=== PATIENT | female | born 1955 | race Two or more races ===

== ENCOUNTER 2017-03-03 10:13 | Inpatient (IN) | payer OTHER ==
[~2017-03-03] VITALS: Ht 172.7 cm; Wt 75.5 kg
[2017-03-03] MEDS ORDERED: SODIUM CHLORIDE 0.9% 1,000 ML IV ONE ×2 (10:35→13:15)
[2017-03-03 11:25] LABS: Basophils # (auto) 0 uL; Basophils % (auto) 0.6 % (0.0-2.0); CONDITION Y; DEFINITIVE SEE PRINTOUT; Eosinophils # (auto) 0.2 uL; Eosinophils % (auto) 3.3 % (0.0-7.0); Hemoglobin 10.4 g/dL (12.2-16.2); Lymphocytes # (auto) 1.8 uL; Lymphocytes % (auto) 29.1 % (10.0-50.0); Mean Corpuscular Hemoglobin 25.9 pg (28.0-32.0); Mean Corpuscular Hgb Conc. 34.4 g/dL (32.0-36.0); Mean Corpuscular Volume 75.3 fL (80.0-100.0); Mean Platelet Volume 9.1 fL (7.4-10.4); Monocytes # (auto) 0.5 uL; Monocytes % (auto) 8.2 % (0.0-12.0); Neutrophils # (auto) 3.5 uL; Neutrophils % (auto) 58.8 % (37.0-80.0); Platelet Count (auto) 221 10^3/uL (140-450); Red Cell Distribution Width 19.1 % (11.6-16.0)
[2017-03-03 11:36] LABS: INR 1.03 (0.9-1.15); Partial Thromboplastin Time 25.7 sec (22.64-33.71); Prothrombin Time 11.2 sec (9.37-12.3)
[2017-03-03 11:50] LABS: Alkaline Phosphatase 45 U/L (45-117); Anion Gap 11 (5-15); Aspartate Aminotransferase 22 U/L (15-37); BUN/Creatinine Ratio 17.1; Bilirubin, Total 0.2 mg/dL (0.2-1.0); Blood Urea Nitrogen 22 mg/dL (7-18); Calcium 7.5 mg/dL (8.5-10.1); Carbon Dioxide 20 mmol/L (21-32); Chloride 96 mmol/L (98-107); GFR African American 54 mL/min; GFR Non-African American 45 mL/min; Glucose 67 mg/dL (74-106); Magnesium 1.9 mg/dL (1.6-2.6); Sodium 127 mmol/L (136-145); Total Protein 6.3 g/dL (6.4-8.2)
[2017-03-03 11:54] LABS: Potassium 2.4 mmol/L (3.5-5.1)
[2017-03-03] MEDS ORDERED: POTASSIUM CHL 20MEQ/100ML 100 ML IV ONE (12:00)
[2017-03-03 12:09] LABS: Anisocytosis Slight; Hypochromia Slight; Platelet Estimate Adequate
[2017-03-03 12:10] LABS: Ovalocytes FEW
[2017-03-03] MEDS ORDERED: NITROGLYCERIN 0.4 MG SL TAB SL PRN (13:15)
[2017-03-03] MEDS ORDERED: SOD CHL 0.9%/ KCL 40MEQ 1,000 ML IV ONE (13:15)
[2017-03-03] MEDS ORDERED: LORazepam 0.5 MG TAB PO PRN (13:15)
[2017-03-03] MEDS ORDERED: POTASSIUM CHL 20 Meq TABLET PO ONE (13:15)
[2017-03-03] MEDS ORDERED: MORPHINE SULF INJ 2 MG/ML SYRINGE 1ML IV PRN (13:15)
[2017-03-03] MEDS ORDERED: TEMAZEPAM 15 MG CAP PO PRN (13:15)
[2017-03-03] MEDS ORDERED: MORPHINE SULFATE 4 MG/ML SYRG IV PRN (13:15)
[2017-03-03] MEDS ORDERED: ACETAMINOPHEN 500 MG TAB PO PRN (13:15)
[2017-03-03] MEDS: POTASSIUM CHL 20MEQ/100ML 100 ML IV SCH ×4 (13:15→22:27)
[2017-03-03] MEDS ORDERED: LACTULOSE 20Gm/30ML SOLN PO PRN (13:15)
[2017-03-03] MEDS ORDERED: PROMETHAZINE HCL 25 MG/ML 1ML IV PRN (13:15)
[2017-03-03] MEDS ORDERED: DEXTROSE (50%) 50ML SYRG IV PRN (13:15)
[2017-03-03] MEDS ORDERED: ASPirin 81 mg TAB PO ONE (13:45)
[2017-03-03 13:58] LABS: Cholesterol 150 mg/dL (< 200); HDL Cholesterol 42 mg/dL (40-59); LDL Cholesterol 103 mg/dL (< 100); Temperature: 22.7 C (20.0-25.0); Triglycerides 61 mg/dL (< 150)
[2017-03-03] MEDS: ENOXAPARIN SOD 40 MG/0.4 ML SYRINGE SC SCH (14:00)
[2017-03-03] MEDS ORDERED: METO-159 PO (15:42)
[2017-03-03] MEDS ORDERED: OMEP20CA74 PO (15:42)
[2017-03-03] MEDS ORDERED: PREG75CA PO (15:42)
[2017-03-03] MEDS ORDERED: TOPI50TA53 PO (15:42)
[2017-03-03] MEDS ORDERED: METF-370 PO (15:42)
[2017-03-03] MEDS ORDERED: NORT25CA PO (15:42)
[2017-03-03] MEDS ORDERED: GABA-497 PO (15:42)
[2017-03-03] MEDS: InsuLIN REG 1unit/0.01ml Soln (100units/ml) SC SCH ×2 (17:00→21:31)
[2017-03-03] MEDS: ACCU-CHEK COMFORT CURVE STRIP VI SCH ×2 (17:18→21:31)
[2017-03-03] MEDS ORDERED: POTASSIUM CHL 20MEQ/100ML 100 ML IV SCH (19:15)
[2017-03-03 20:00] VITALS: BP 138/80
[2017-03-03] MEDS: ATORVASTATIN 20 MG TAB PO SCH (21:31)
[2017-03-03] MEDS: HYDROcodone-ACET 5/325MG TAB PO PRN (21:34)
[2017-03-03 21:45] VITALS: BP 138/80
[2017-03-03] MEDS ORDERED: LORazepam 2MG/ML-1ML VIAL IV PRN (21:45)
[2017-03-04] MEDS: POTASSIUM CHL 20MEQ/100ML 100 ML IV SCH (01:53)
[2017-03-04] MEDS: HYDROcodone-ACET 5/325MG TAB PO PRN ×4 (03:35→21:32)
[2017-03-04 04:37] VITALS: BP 120/79
[2017-03-04] MEDS: InsuLIN REG 1unit/0.01ml Soln (100units/ml) SC SCH ×4 (06:05→21:25)
[2017-03-04] MEDS: ACCU-CHEK COMFORT CURVE STRIP VI SCH ×4 (06:06→21:25)
[2017-03-04 06:28] LABS: Albumin 3.3 g/dL (3.4-5.0); Bilirubin, Total 0.4 mg/dL (0.2-1.0); Calcium 9.1 mg/dL (8.5-10.1); Potassium 3.3 mmol/L (3.5-5.1)
[2017-03-04 06:36] LABS: Basophils # (auto) 0 uL; Basophils % (auto) 0.4 % (0.0-2.0); CONDITION Y; DEFINITIVE SEE PRINTOUT; Eosinophils # (auto) 0.2 uL; Eosinophils % (auto) 4.7 % (0.0-7.0); Hematocrit 30.5 % (36.0-46.0); Hemoglobin 10.3 g/dL (12.2-16.2); Lymphocytes # (auto) 2.1 uL; Lymphocytes % (auto) 46.4 % (10.0-50.0); Mean Corpuscular Hemoglobin 25.9 pg (28.0-32.0); Mean Corpuscular Hgb Conc. 33.6 g/dL (32.0-36.0); Mean Corpuscular Volume 77.1 fL (80.0-100.0); Mean Platelet Volume 9.5 fL (7.4-10.4); Monocytes # (auto) 0.3 uL; Monocytes % (auto) 7.1 % (0.0-12.0); Neutrophils # (auto) 1.9 uL; Neutrophils % (auto) 41.4 % (37.0-80.0); Platelet Count (auto) 222 10^3/uL (140-450); Red Cell Distribution Width 19.5 % (11.6-16.0); White Blood Cell 4.5 10^3/uL (4.4-10.8)
[2017-03-04 07:21] LABS: Anisocytosis Slight; Hypochromia Slight; Microcytosis Slight; Platelet Estimate Adequate
[2017-03-04 08:52] VITALS: BP 117/75
[2017-03-04] MEDS: PANTOPRAZOLE 40 MG TAB PO SCH (10:41)
[2017-03-04] MEDS: ASPirin 81 mg TAB PO SCH (10:41)
[2017-03-04] MEDS: SODIUM CHLORIDE 0.9% 1,000 ML IV SCH ×2 (12:30→21:21)
[2017-03-04] MEDS ORDERED: POTASSIUM CHL 20 Meq TABLET PO ONE (12:45)
[2017-03-04 13:15] VITALS: BP 127/74
[2017-03-04] MEDS: ENOXAPARIN SOD 40 MG/0.4 ML SYRINGE SC SCH (13:57)
[2017-03-04 16:41] VITALS: BP 126/91
[2017-03-04 20:00] VITALS: BP 113/69
[2017-03-04] MEDS: ATORVASTATIN 20 MG TAB PO SCH (21:22)
[2017-03-04 21:37] VITALS: BP 113/69
[2017-03-05] MEDS: SODIUM CHLORIDE 0.9% 1,000 ML IV SCH ×3 (04:01→22:27)
[2017-03-05] MEDS: HYDROcodone-ACET 5/325MG TAB PO PRN (04:02)
[2017-03-05 05:07] VITALS: BP 132/97
[2017-03-05 05:41] LABS: Basophils # (auto) 0 uL; Basophils % (auto) 0.3 % (0.0-2.0); CONDITION Y; DEFINITIVE SEE PRINTOUT; Eosinophils # (auto) 0.1 uL; Eosinophils % (auto) 3.6 % (0.0-7.0); Hematocrit 31.7 % (36.0-46.0); Hemoglobin 10.6 g/dL (12.2-16.2); Lymphocytes # (auto) 1.6 uL; Lymphocytes % (auto) 39.5 % (10.0-50.0); Mean Corpuscular Hemoglobin 25.9 pg (28.0-32.0); Mean Corpuscular Hgb Conc. 33.5 g/dL (32.0-36.0); Mean Corpuscular Volume 77.4 fL (80.0-100.0); Mean Platelet Volume 8.5 fL (7.4-10.4); Monocytes # (auto) 0.3 uL; Monocytes % (auto) 7.7 % (0.0-12.0); Neutrophils % (auto) 48.9 % (37.0-80.0); Platelet Count (auto) 272 10^3/uL (140-450); Red Cell Distribution Width 19.7 % (11.6-16.0); White Blood Cell 4.1 10^3/uL (4.4-10.8)
[2017-03-05 05:57] LABS: Calcium 8.9 mg/dL (8.5-10.1); Magnesium 1.8 mg/dL (1.6-2.6); Potassium 3.5 mmol/L (3.5-5.1)
[2017-03-05] MEDS: ACCU-CHEK COMFORT CURVE STRIP VI SCH ×4 (06:30→22:28)
[2017-03-05] MEDS: InsuLIN REG 1unit/0.01ml Soln (100units/ml) SC SCH ×4 (06:30→22:00)
[2017-03-05 09:00] VITALS: BP 151/91
[2017-03-05] MEDS: ASPirin 81 mg TAB PO SCH (10:49)
[2017-03-05] MEDS: PANTOPRAZOLE 40 MG TAB PO SCH (10:49)
[2017-03-05 13:00] VITALS: BP 166/87
[2017-03-05] MEDS: ENOXAPARIN SOD 40 MG/0.4 ML SYRINGE SC SCH (15:49)
[2017-03-05 17:00] VITALS: BP 162/102
[2017-03-05] MEDS: cloNIDine HCL 0.1 MG TAB PO PRN (18:03)
[2017-03-05 22:00] VITALS: BP 160/98
[2017-03-05] MEDS: ATORVASTATIN 20 MG TAB PO SCH (22:27)
[2017-03-05] MEDS: PREGABALIN 25 MG CAP PO SCH (22:27)
[2017-03-05] MEDS: GABAPENTIN 300 MG CAP PO SCH (22:27)
[2017-03-05] MEDS: MORPHINE SULF 15mg ER tab PO SCH (22:28)
[2017-03-06] MEDS ORDERED: LORazepam 2MG/ML-1ML VIAL IV PRN (02:15)
[2017-03-06 02:57] LABS: Basophils # (auto) 0 uL; Basophils % (auto) 0.4 % (0.0-2.0); CONDITION Y; DEFINITIVE SEE PRINTOUT; Eosinophils # (auto) 0.1 uL; Eosinophils % (auto) 0.8 % (0.0-7.0); Hematocrit 34.7 % (36.0-46.0); Hemoglobin 11.6 g/dL (12.2-16.2); Lymphocytes # (auto) 1.9 uL; Mean Corpuscular Hemoglobin 26.1 pg (28.0-32.0); Mean Corpuscular Hgb Conc. 33.4 g/dL (32.0-36.0); Mean Corpuscular Volume 78.2 fL (80.0-100.0); Mean Platelet Volume 8.2 fL (7.4-10.4); Monocytes # (auto) 0.4 uL; Monocytes % (auto) 6.5 % (0.0-12.0); Neutrophils # (auto) 4.3 uL; Neutrophils % (auto) 64.3 % (37.0-80.0); Platelet Count (auto) 296 10^3/uL (140-450); White Blood Cell 6.7 10^3/uL (4.4-10.8)
[2017-03-06 03:09] LABS: Red Cell Distribution Width 20.4 % (11.6-16.0)
[2017-03-06 03:23] LABS: Albumin 3.5 g/dL (3.4-5.0); BUN/Creatinine Ratio 6.8; Calcium 8.7 mg/dL (8.5-10.1)
[2017-03-06 03:26] LABS: Bilirubin, Total 0.5 mg/dL (0.2-1.0); Total Protein 7.6 g/dL (6.4-8.2)
[2017-03-06] MEDS: SODIUM CHLORIDE 0.9% 1,000 ML IV SCH ×2 (04:30→12:30)
[2017-03-06 05:00] VITALS: BP 165/95
[2017-03-06 06:00] VITALS: BP 157/100
[2017-03-06] MEDS: GABAPENTIN 300 MG CAP PO SCH ×3 (06:00→22:12)
[2017-03-06] MEDS: PREGABALIN 25 MG CAP PO SCH ×3 (06:00→22:13)
[2017-03-06] MEDS: ACCU-CHEK COMFORT CURVE STRIP VI SCH ×4 (06:16→22:13)
[2017-03-06] MEDS: InsuLIN REG 1unit/0.01ml Soln (100units/ml) SC SCH ×4 (06:16→22:00)
[2017-03-06 08:55] VITALS: BP 148/90
[2017-03-06] MEDS: PANTOPRAZOLE 40 MG TAB PO SCH (09:45)
[2017-03-06] MEDS: MORPHINE SULF 15mg ER tab PO SCH ×2 (09:45→22:12)
[2017-03-06] MEDS: ASPirin 81 mg TAB PO SCH (09:45)
[2017-03-06] MEDS ORDERED: POTASSIUM CHL 20 Meq TABLET PO ONE (11:15)
[2017-03-06 11:59] VITALS: BP 144/89
[2017-03-06] MEDS: ENOXAPARIN SOD 40 MG/0.4 ML SYRINGE SC SCH (13:44)
[2017-03-06] MEDS: chlordiazePOXIDE HCL 5 MG CAP PO SCH ×2 (13:45→22:12)
[2017-03-06 17:00] VITALS: BP 165/97
[2017-03-06] MEDS: cloNIDine HCL 0.1 MG TAB PO PRN (17:26)
[2017-03-06 22:00] VITALS: BP 153/101
[2017-03-06] MEDS: ATORVASTATIN 20 MG TAB PO SCH (22:13)
[2017-03-06] MEDS: TOPIRAMATE 25 MG TAB PO SCH (22:13)
[2017-03-07] MEDS ORDERED: AMLO5TAB2 PO (04:59)
[2017-03-07] MEDS ORDERED: LEVO25TA6 PO (04:59)
[2017-03-07] MEDS ORDERED: HCTZ25T PO (04:59)
[2017-03-07] MEDS ORDERED: BACL20TA PO (04:59)
[2017-03-07 05:00] VITALS: BP 153/94
[2017-03-07] MEDS: SODIUM CHLORIDE 0.9% 1,000 ML IV SCH ×2 (05:01→15:10)
[2017-03-07] MEDS: GABAPENTIN 300 MG CAP PO SCH ×2 (05:48→15:57)
[2017-03-07] MEDS: PREGABALIN 25 MG CAP PO SCH ×2 (05:48→15:58)
[2017-03-07] MEDS: chlordiazePOXIDE HCL 5 MG CAP PO SCH ×2 (05:48→15:57)
[2017-03-07] MEDS: InsuLIN REG 1unit/0.01ml Soln (100units/ml) SC SCH ×3 (05:56→17:00)
[2017-03-07] MEDS: ACCU-CHEK COMFORT CURVE STRIP VI SCH ×3 (05:56→17:00)
[2017-03-07 06:47] LABS: Basophils # (auto) 0 uL; Basophils % (auto) 0.4 % (0.0-2.0); CONDITION Y; DEFINITIVE SEE PRINTOUT; Eosinophils # (auto) 0.5 uL; Eosinophils % (auto) 7.1 % (0.0-7.0); Hematocrit 31.3 % (36.0-46.0); Hemoglobin 10.7 g/dL (12.2-16.2); Lymphocytes # (auto) 2.7 uL; Mean Corpuscular Hemoglobin 26.2 pg (28.0-32.0); Mean Corpuscular Volume 76.9 fL (80.0-100.0); Mean Platelet Volume 8.1 fL (7.4-10.4); Monocytes # (auto) 0.4 uL; Monocytes % (auto) 6.1 % (0.0-12.0); Neutrophils # (auto) 3.5 uL; Neutrophils % (auto) 48.4 % (37.0-80.0); Platelet Count (auto) 255 10^3/uL (140-450); White Blood Cell 7.1 10^3/uL (4.4-10.8)
[2017-03-07] MEDS: cloNIDine HCL 0.1 MG TAB PO PRN ×2 (06:52→18:52)
[2017-03-07 07:01] LABS: Calcium 9.1 mg/dL (8.5-10.1); Magnesium 1.8 mg/dL (1.6-2.6); Potassium 3.3 mmol/L (3.5-5.1)
[2017-03-07 07:29] VITALS: BP 160/104
[2017-03-07 07:32] LABS: Red Cell Distribution Width 20.6 % (11.6-16.0)
[2017-03-07 08:42] LABS: Anisocytosis Slight; Hypochromia Slight; Platelet Estimate Adequate
[2017-03-07] MEDS: ASPirin 81 mg TAB PO SCH (10:49)
[2017-03-07] MEDS: PANTOPRAZOLE 40 MG TAB PO SCH (10:50)
[2017-03-07] MEDS: TOPIRAMATE 25 MG TAB PO SCH (10:51)
[2017-03-07] MEDS: MORPHINE SULF 15mg ER tab PO SCH (10:51)
[2017-03-07] MEDS ORDERED: POTASSIUM CHL 20 Meq TABLET PO ONE (11:15)
[2017-03-07 13:38] VITALS: BP 144/88
[2017-03-07] MEDS: ENOXAPARIN SOD 40 MG/0.4 ML SYRINGE SC SCH (15:58)
[2017-03-07 17:00] VITALS: BP 167/100
== END 2017-03-07 23:02 | DRG 896 ==
LOC: ER 10:13 → TELE 10:14 → TELE-E-ADS 15:10 → TELE-CENTR 17:51
PROVIDERS: ADMIT Internal Medicine; ATTEND Internal Medicine Geriatric Medicine
DX: F11.23 Opioid dependence with withdrawal (principal); G93.41 Metabolic encephalopathy; E87.1 Hypo-osmolality and hyponatremia; D64.9 Anemia, unspecified; E11.9 Type 2 diabetes mellitus without complications; I10 Essential (primary) hypertension; I67.2 Cerebral atherosclerosis; J44.9 Chronic obstructive pulmonary disease, unspecified; E03.9 Hypothyroidism, unspecified; E87.6 Hypokalemia; K21.9 Gastro-esophageal reflux disease without esophagitis; E86.0 Dehydration; F41.9 Anxiety disorder, unspecified; G89.4 Chronic pain syndrome; Z82.49 Family history of ischemic heart disease and other diseases of the circulatory system; Z82.3 Family history of stroke; Z79.899 Other long term (current) drug therapy; Z81.8 Family history of other mental and behavioral disorders; Z86.73 Personal history of transient ischemic attack (TIA), and cerebral infarction without residual deficits; M54.9 Dorsalgia, unspecified; Z90.710 Acquired absence of both cervix and uterus; Z79.82 Long term (current) use of aspirin
CPT/HCPCS: 36415; 70450; 70551; 71010; 74176; 80048; 80053; 80061; 80320; 82550; 82607; 82746; 82962; 83036; 83605; 83735; 84443; 84484; 85025; 85610; 85652; 85730; 87040; 93005; 93306; 93886; 95819; 96374; 99291; J3480

== ENCOUNTER → 2017-09-02 | Outpatient (CLI) | payer MEDICARE, MEDICAID ==
[~2017-09-02] MED LIST: AMLO5TAB2 PO; BACL20TA PO; GABA300C10 PO; HCTZ25T PO; LEVO25TA6 PO; METF-370 PO; METO-159 PO; NORT25CA PO; OMEP20CA74 PO; PREG75CA PO; TOPI50TA53 PO
[2017-09-02 10:18] LABS: Basophils # (auto) 0 uL; Eosinophils # (auto) 0.6 uL; Eosinophils % (auto) 10.1 % (0.0-7.0); Lymphocytes # (auto) 2.6 uL; Monocytes # (auto) 0.4 uL; Neutrophils # (auto) 2.1 uL; Nucleated Red Blood Cells % 0.1 %; White Blood Cell 5.7 10^3/uL (4.4-10.8)
[2017-09-02 10:20] LABS: Basophils % (auto) 0.8 % (0.0-2.0); Hematocrit 33.7 % (36.0-46.0); Hemoglobin 10.9 g/dL (12.2-16.2); Lymphocytes % (auto) 45.8 % (10.0-50.0); Mean Corpuscular Hemoglobin 24.2 pg (28.0-32.0); Mean Corpuscular Hgb Conc. 32.4 g/dL (32.0-36.0); Mean Corpuscular Volume 74.6 fL (80.0-100.0); Monocytes % (auto) 6.9 % (0.0-12.0); Neutrophils % (auto) 36.4 % (37.0-80.0); Platelet Count (auto) 208 10^3/uL (140-450); Red Blood Cells 4.52 10^6/uL (4.0-5.20); Red Cell Distribution Width 19.2 % (11.8-14.3)
[2017-09-02 11:49] LABS: Albumin 3.8 g/dL (3.4-5.0); BUN/Creatinine Ratio 11.5; Calcium 8.7 mg/dL (8.5-10.1)
[2017-09-02 11:52] LABS: Bilirubin, Total 0.3 mg/dL (0.2-1.0); Total Protein 7.9 g/dL (6.4-8.2)
== END | disposition home or self-care (01) ==
LOC: LAB 09:19
PROVIDERS: ATTEND Family Medicine
DX: E03.9 Hypothyroidism, unspecified (principal); D64.9 Anemia, unspecified
CPT/HCPCS: 36415; 80053; 85025